=== PATIENT | female | born 1955 | race Caucasian/White ===

== ENCOUNTER 2020-11-19 07:56 | Outpatient (CLI) | payer MEDICARE, BC ==
[~2020-11-19 07:56] MED LIST: REGADENOSON 0.4 MG/5 ML SYRINGE ONE
== END 2020-11-19 23:59 | disposition home or self-care (01) ==
LOC: CFH 07:56
PROVIDERS: ATTEND Internal Medicine Cardiovascular Disease
DX: R06.02 Shortness of breath (principal)
CPT/HCPCS: 78452; 93017; A9502; J2785